=== PATIENT | male | born 1970 | race Caucasian/White ===

== ENCOUNTER 2021-10-14 06:22 | Day surgery (SDC) | payer BC, OTHER ==
[~2021-10-14 06:22] MED LIST: Lactated Ringers 1,000 ML IV SCH; Lidocaine 1%/Sod Bicarbonate in NS 8.4% 1 ML Syringe IDERM PRN; Sodium Chloride 0.9% 10 ML Syringe FLUSH PRN; Sodium Chloride 0.9% 10 ML Syringe FLUSH SCH
[2021-10-14] MEDS ORDERED: Propofol 200 MG/20 ML SDV ONE ×2 (06:51→06:58)
[2021-10-14] MEDS ORDERED: fentaNYL 100 MCG/2 ML SDV ONE (06:52)
[2021-10-14] MEDS ORDERED: Ketamine 500 mg/10 ML MDV ONE (06:52)
[2021-10-14] MEDS ORDERED: Lidocaine 1% 6 ML ONE (06:57)
== END 2021-10-14 08:55 | disposition home or self-care (01) ==
LOC: JD.SDS 06:22
PROVIDERS: ATTEND Family Medicine
DX: Z12.11 Encounter for screening for malignant neoplasm of colon (principal); K64.8 Other hemorrhoids; K64.4 Residual hemorrhoidal skin tags; E11.9 Type 2 diabetes mellitus without complications; I10 Essential (primary) hypertension; K21.9 Gastro-esophageal reflux disease without esophagitis; F32.A Depression, unspecified; E66.9 Obesity, unspecified; F39 Unspecified mood [affective] disorder; Z87.891 Personal history of nicotine dependence; Z79.899 Other long term (current) drug therapy; Z79.82 Long term (current) use of aspirin; Z98.890 Other specified postprocedural states; Z68.41 Body mass index [BMI] 40.0-44.9, adult; Z79.84 Long term (current) use of oral hypoglycemic drugs; Z88.8 Allergy status to other drugs, medicaments and biological substances
CPT/HCPCS: 45378; J2704; J3010; J3490; J7120